=== PATIENT | female | born 1960 | race Caucasian/White ===

== ENCOUNTER 2017-02-19 09:07 | Emergency (ER) | payer BC, OTHER ==
[~2017-02-19] VITALS: Ht 172.7 cm; Wt 118.1 kg
[2017-02-19 10:02] LABS: MCH 29.6 PG (29.0-34.0); MCHC 32.9 G/DL (30.0-36.0); MCV 90.1 FL (83-99); MEAN PLAT.VOLUME 10.1 uM^3 (9.5-12.4); PLATELET COUNT 293 K/uL (156-360); RBC DIS.WIDTH-CV 13.1 % (11.8-14.6); RBC DIS.WIDTH-SD 43.2 % (39-53); RED BLOOD COUNT 4.66 M/uL (3.80-5.20); WHITE BLOOD COUNT 6.5 K/uL (4.1-10.2)
[2017-02-19 10:12] LABS: CHLORIDE 108 mEq/L (99-109); POTASSIUM 3.6 mEq/L (3.7-5.4); SODIUM 140 mEq/L (136-147)
[2017-02-19 10:13] LABS: GLUCOSE 105 mg/dL (70-99)
[2017-02-19 10:15] LABS: ANION GAP 7 MEQ/L (2-14)
[2017-02-19 10:17] LABS: GFR ESTIMATE (CALCULATED) > 59 mL/min/
[2017-02-19 10:18] LABS: UREA NITROGEN (BUN) 17 mg/dL (9-23)
[2017-02-19 13:20] VITALS: BP 140/77
== END 2017-02-19 13:22 | disposition home or self-care (01) ==
LOC: EME 09:07
DX: G89.18 Other acute postprocedural pain (principal); M25.561 Pain in right knee; R60.0 Localized edema; M19.90 Unspecified osteoarthritis, unspecified site; R06.02 Shortness of breath; R42 Dizziness and giddiness; R11.0 Nausea; N95.0 Postmenopausal bleeding; Z98.890 Other specified postprocedural states
CPT/HCPCS: 71020; 80048; 85027; 93005; 93971; 99281; 99284